=== PATIENT | female | born 1950 | race African-American/Black ===

== ENCOUNTER 2025-07-16 15:15 | Emergency (ER) | payer BC, OTHER ==
[2025-07-16] MEDS: HYDROcodone-ACET 5/325MG TAB PO ONE (16:00)
[2025-07-16] MEDS: KETOROLAC TROMETH 60MG/2ML VIAL IM ONE (16:02)
[2025-07-16 16:04] VITALS: BP 149/90; PULSE 107; RESP 16; TEMP 97.3; O2SAT 94
--- NOTE | 2025-07-16 16:07 | ED.PDOC ---
History of Present Illness HPI Comments This patient is a morbidly obese 74 y/o F who presents with c/c of left knee pain, with associated decreased ROM, s/p mechanical fall and injury. Patient reports injuring her knee after losing her balance and falling on it, while [place] No additional injuries or acute symptoms endorsed. No blood loss. Patient is able to ambulate with a cane. Patient denies any head trauma. Chief Complaint: Lower Extremity Time Seen by MD: 15:30 Reviewed Notes: Nurses Notes, Medications, Allergies Allergies: Coded Allergies: UNOBTAINABLE (Unverified , 07/16/25) DOES NOT RECALL NAME OF MEDICATION Information Source: Patient, Relative (Child) Mode of Arrival: Ambulatory Severity: Moderate Timing: Hours Duration: Since onset Prehospital treatment: None Past Medical History PAST MEDICAL HISTORY: Denies Surgical History: Denies all surgeries KENNEL AIDE History: No Pertinent KENNEL AIDE History Family History Family History: Unknown Social History Smoker: Non-Smoker Alcohol: Denies ETOH Use Drugs: Denies Drug Use Lives In: Home Constitutional: denies: chills, diaphoresis, fatigue, fever, malaise, sweats, weakness, others EENTM: denies: blurred vision, double vision, ear bleeding, ear discharge, ear drainage, ear pain, ear ringing, eye pain, eye redness, hearing loss, mouth pain, mouth swelling, nasal discharge, nose bleeding, nose congestion, nose pain, photophobia, tearing, throat pain, throat swelling, voice changes, others Respiratory: denies: cough, hemoptysis, orthopnea, SOB at rest, shortness of breath, SOB with excertion, stridor, wheezing, others Cardiovascular: denies: chest pain, dizzy spells, diaphoresis, Dyspnea on exertion, edema, irregular heart beat, left arm pain, lightheadedness, palpitations, PND, syncope, others Gastrointestinal: denies: abdomen distended, abdominal pain, blood streaked bowels, constipated, diarrhea, dysphagia, difficulty swallowing, hematemesis, melena, nausea, poor appetite, poor fluid intake, rectal bleeding, rectal pain, vomiting, others Genitourinary: denies: abnormal vagina bleeding, burning, dyspareunia, dysuria, flank pain, frequency, hematuria, incontinence, pain, , vagina discharg e, urgency, others Neurological: denies: dizziness, fainting, headache, left sided numbness, left sided weakness, numbness, paresthesia, pre-existing deficit, right sided numbness, right sided weakness, seizure, speech problems, tingling, tremors, weakness, others Musculoskeletal: reports: others (Left knee pain); denies: back pain, gout, joint pain, joint swelling, muscle pain, muscle stiffness, neck pain Integumetry: denies: bruises, change in color, change in hair/nails, dryness, laceration, lesions, lumps, rash, wounds, others Allergic/Immunocompromised: denies: Difficulty Healing, Frequent Infections, Hives, Itching, others Hematologic/Lymphatic: denies: anemia, blood clots, easy bleeding, easy bruising, swollen glands, others Endocrine: denies: excessive hunger, excessive sweating, excessive thirst, excessive urination, flushing, intolerance to cold, intolerance to heat, unexplained weight gain, unexplained weight loss, others Psychiatric: denies: anxiety, bipolar disorder, depression, hopeless, panic disorder, schizophrenia, sleepless, suicidal, others All Other Systems: Reviewed and Negative (As per HPI) Physical Exam General Appearance: Moderate Distress ([id number] distress due to left knee pain concerns.), Obese HEENT: Normal ENT Inspection, Pharynx Normal, TMs Normal Neck: Full Range of Motion, Non-Tender, Normal, Normal Inspection Respiratory: Chest Non-Tender, Lungs Clear, No Accessory Muscle Use, No Respiratory Distress, Normal Breath Sounds Cardiovascular: No Edema, No JVD, No Murmur, No Gallop, Normal Peripheral Pulses, Regular Rate/Rhythm Breast Exam: Deferred Gastrointestinal: No Organomegaly, Non Tender, No Pulsatile Mass, Normal Bowel Sounds, Soft Genitalia: Deferred Pelvic: Deferred Rectal: Deferred Extremities: Other (Anterior aspect of the left knee is diffusely tender to palpation throughout the tibial tuberosity and into the patella. Mild edema noted. No ecchymosis. [id number]-uyhutinm reduced range of motion. Distal neurovascularly intact. Patient can bear weight with difficulty.) Neurologic: Alert Cerebellar Function: NOT DONE Reflexes: NOT DONE Skin: Dry, Normal Color, Warm Lymphatic: No Adenopathy Was a procedure done? Was a procedure done?: No Differential Dx Considerations may include: fractures, dislocation, sprain, contusions, among others X-Ray, Labs, Meds, VS Vital Signs Date Time Temp Pulse Resp B/P (MAP) Pulse Ox O2 Delivery O2 Flow Rate FiO2 07/16/25 16:04 97.3 107 16 149/90 (109) 94 97.3 07/16/25 15:18 98.1 100 18 149/91 98 98.1 Current Medications Medications (Trade) Dose Ordered Sig/Rosalba Route Start Time Stop Time Status Last Admin Ketorolac Tromethamine (Toradol Injection) 15 mg ONCE ONCE IM 07/16/25 15:45 07/16/25 15:46 DC 07/16/25 16:02 Acetaminophen/ Hydrocodone Bitart ([place] 5/325MG Tab) 1 tab ONCE ONCE PO 07/16/25 15:45 07/16/25 15:46 DC 07/16/25 16:00 X-Ray, Labs, Meds, VS Comment All studies performed in the ED were evaluated by me personally. Imaging studies of the left knee were unremarkable for any acute fractures. Patient sustained a knee contusion. Patient was provided with a an [place] wrap as well as pain medication. Advised ice therapy as well. If symptoms continue, patient will need to follow up with the primary care provider. Time of 1ST Reevaluation: 16:38 Reevaluation 1ST: Improved Consultation: PCP Patient Education/Counseling: Diagnosis, Treatment, Need For Follow Up Family Education/Counseling: Diagnosis, Treatment, No Family Present SEPSIS Sepsis Screen Date sepsis recognized/suspect: Jul 16, 2025 Time Sepsis recognized/suspect: 1519 Recent Procedure: No On Antibiotic Therapy: No Respiratory Rate >20: No Heart Rate >90: No Temp<36 C (96.8 F) or >38.3 C: No SBP <90 or MAP <65 mmHG: No New Acute Mental Status Change: No Is the patient on CPAP, BIPAP,: No Physician Orders L Knee 3v Xray (07/16/25 15:32) Vital Signs Date Time Temp Pulse Resp B/P (MAP) Pulse Ox O2 Delivery O2 Flow Rate FiO2 07/16/25 16:04 97.3 107 16 149/90 (109) 94 97.3 07/16/25 15:18 98.1 100 18 149/91 98 98.1 Medications Medications Dose Ordered Sig/Rosalba Route Start Time Stop Time Status Last Admin Dose Admin Acetaminophen/ Hydrocodone Bitart 1 tab ONCE ONCE PO 07/16/25 15:45 07/16/25 15:46 DC 07/16/25 16:00 Ketorolac Tromethamine 15 mg ONCE ONCE IM 07/16/25 15:45 07/16/25 15:46 DC 07/16/25 16:02 Departure 1 Departure Time of Disposition: 16:38 Impression: Primary Impression: Contusion of left knee Disposition: HOME / SELF CARE / HOMELESS Condition: Stable Additional Instructions: Advised pain medication as needed for symptomatic relief as well as ice therapy. If symptoms continue, patient will need to follow up with the primary care provider for evaluation. e-Prescriptions Acetaminophen (Acetaminophen) 500 Mg Tab 500 MG PO Q4HP PRN, #30 TAB Prov: JAYCEE RYAN PAC 07/16/25 Ibuprofen Micronized (Ibuprofen) 800 Mg Tab 800 MG PO Q8HP PRN, #20 TAB Prov: JAYCEE RYAN PAC 07/16/25 Discharged With: Self, Relative Critical Care Note Critical Care Time?: No Stability Stability form required: No Heart Score Heart Score: Heart Score Response (Comments) Value History N/A 0 EKG N/A 0 Age N/A 0 Risk Factors N/A 0 Troponin N/A 0 Total 0 I personally scribed for JAYCEE RYAN PAC ([email or web address]) on 07/16/25 at 16:07. Electronically submitted by Logan Tellez ([email or web address]). JAYCEE RYAN PAC Jul 16, 2025 16:07
--- NOTE | 2025-07-16 16:11 | DVH ---
EXAM: XY L KNEE 3V XRAY CLINICAL INDICATION: Fall/trauma TECHNIQUE: XY L KNEE 3V XRAY Comparison: None FINDINGS/IMPRESSION: There is no evidence of acute fracture or dislocation. There is mild narrowing of the medial capsule. Small amount of chondrocalcinosis is seen involving th e lateral capsule. The alignment is anatomical. There is no radiopaque foreign body.
[2025-07-16] MEDS ORDERED: IBUP-1455 PO (16:40)
[2025-07-16] MEDS ORDERED: ACET500T58 PO (16:40)
== END 2025-07-16 17:11 | disposition home or self-care (01) ==
LOC: ER 15:15
DX: S80.02XA Contusion of left knee, initial encounter (principal); W01.0XXA Fall on same level from slipping, tripping and stumbling without subsequent striking against object, initial encounter; Y93.89 Activity, other specified; Y92.89 Other specified places as the place of occurrence of the external cause; Y99.8 Other external cause status
CPT/HCPCS: 73562; 96372; 99283; J1885